=== PATIENT | male | born 1980 | race Caucasian/White ===

== ENCOUNTER 2022-08-21 14:27 | Outpatient (CLI) | payer BC | END 2022-08-21 14:28 | disposition home or self-care (01) | LOC: TBSIIMAG 14:27 | PROVIDERS: ATTEND Neurological Surgery | DX: M47.22 Other spondylosis with radiculopathy, cervical region (principal); M48.02 Spinal stenosis, cervical region | CPT/HCPCS: 72141 ==

== ENCOUNTER 2022-09-18 05:36 | Day surgery (SDC) | payer BC ==
[2022-09-16 11:19] VITALS: BMI 34.0
[2022-09-18] MEDS ORDERED: Thrombin 5000 UNITS/5 ML VIAL ONE (06:19)
[2022-09-18] MEDS ORDERED: Magnesium 5 GM/10 ML VIAL ONE (06:38)
[2022-09-18] MEDS ORDERED: Dexmedetomidine 200 MCG/2 ML VIAL ONE (06:38)
[2022-09-18] MEDS ORDERED: CEFAZOLIN 2 GM VIAL ONE ×2 (06:40→11:15)
[2022-09-18] MEDS ORDERED: Sodium Chloride 0.9% 100 ML ONE ×2 (06:40→11:15)
[2022-09-18] MEDS ORDERED: Midazolam HCl 2 mg/2 ml Vial ONE (06:56)
[2022-09-18] MEDS ORDERED: Ondansetron PF 4 MG/2 ML Vial ONE (07:02)
[2022-09-18] MEDS ORDERED: Dexamethasone 20 MG/5 ML VIAL ONE (07:02)
[2022-09-18] MEDS ORDERED: PROPOFOL 200 MG/20 ML VIAL ONE (07:02)
[2022-09-18] MEDS ORDERED: Lidocaine 1% PF 5 ML VIAL ONE (07:02)
[2022-09-18] MEDS ORDERED: Ketorolac Tromethamine 30 MG/ML VIAL ONE (07:02)
[2022-09-18] MEDS ORDERED: Rocuronium Bromide 10 MG/ML (10ML VIAL) ONE (07:02)
[2022-09-18] MEDS ORDERED: KETAMINE 100 MG/ML (5ML VIAL) ONE (07:36)
[2022-09-18] MEDS ORDERED: SUGAMMADEX SODIUM 200 MG/2 ML VIAL ONE (08:05)
[2022-09-18] MEDS ORDERED: Tamsulosin HCl 0.4 MG CAP ONE (08:34)
[2022-09-18] MEDS ORDERED: HYDROmorphone 0.5 MG/0.5 ML SYRINGE ONE (08:34)
[2022-09-18] MEDS ORDERED: Cyclobenzaprine 10 MG TAB ONE (09:58)
== END 2022-09-18 11:54 | disposition home or self-care (01) ==
LOC: SDC 05:36
PROVIDERS: ATTEND Neurological Surgery
PROC: 0RG10A0 Fusion of Cervical Vertebral Joint with Interbody Fusion Device, Anterior Approach, Anterior Column, Open Approach (ICD-10-PCS; principal; 2022-09-18)
PROC: 0RT30ZZ Resection of Cervical Vertebral Disc, Open Approach (ICD-10-PCS; principal; 2022-09-18)
DX: M54.12 Radiculopathy, cervical region (principal); F17.290 Nicotine dependence, other tobacco product, uncomplicated; Z88.5 Allergy status to narcotic agent
CPT/HCPCS: C1713; C1889; J1100; J1170; J1885; J2250; J2405; J2704; J3475; J3490